=== PATIENT | female | born 1980 | race Caucasian/White ===

== ENCOUNTER 2016-08-13 17:34 | Emergency (ER) | payer MEDICAID, OTHER ==
--- NOTE | 2016-08-13 17:39 | EDPHY ---
H & P Stated Complaint: diagnosed with concussion on , headaches getting worse, vomitted today Time Seen by Provider: 08/13/16 17:38 HPI/ROS: CHIEF COMPLAINT: Headache, vomiting following head injury HISTORY OF PRESENT ILLNESS: The patient presents to the ED complaining of an ongoing headache and vomiting following head injury which occurred 8 days ago. The patient was reportedly struck by her dog in the side of her head. She has had a persistent temporal headache with some post concussive symptoms since that time. The patient denies any unilateral neck pain, numbness, weakness or photophobia. The patient reports a moderate headache which is not improved with Tylenol. The patient reports the headache is primarily in the left temporal area. The patient denies additional traumatic injury. Patient was seen at urgent care approximately 5 days ago and advised to follow up in the ED for progressive symptoms which prompted her visit today. REVIEW OF SYSTEMS: A comprehensive 10 point review of systems is otherwise negative aside from elements mentioned in the history of present illness. Source: Patient - Personal History LMP (Females 10-55): 8-14 Days Ago Current Tetanus/Diphtheria Vaccine: Unsure Current Tetanus Diphtheria and Acellular Pertussis (TDAP): Unsure - Medical/Surgical History Hx Asthma: No Hx Chronic Respiratory Disease: No Hx Diabetes: No Hx Cardiac Disease: No Hx Renal Disease: No Hx Cirrhosis: No Hx Alcoholism: No Hx HIV/AIDS: No Hx Splenectomy or Spleen Trauma: No Other PMH: none reported - Social History Smoking Status: Never smoked - Physical Exam Exam: General Appearance: Alert, no distress Head: Tenderness to palpation along the left temporal bone, no hematoma Eyes: Pupils equal, round, reactive ENT, Mouth: No hemotympanum, no oral trauma Neck: Nontender, trachea midline Respiratory: No chest wall tender, subcutaneous air, lungs clear bilaterally Cardiovascular: Regular rate and rhythm Abdomen: Abdomen is soft and nontender, pelvis stable Skin: No lacerations, No abrasion Back: No midline T/L/S pain Extremities: Nontender, full range of motion Neurological: A&Ox3, normal motor function, normal sensory exam Constitutional: Initial Vital Signs Temperature (C) 37 C 08/13/16 17:36 Heart Rate 85 08/13/16 17:36 Respiratory Rate 18 08/13/16 17:36 Blood Pressure 125/73 H 08/13/16 17:36 O2 Sat (%) 96 04/08/17 17:36 O2 Delivery Mode Room Air Allergies/Adverse Reactions: No Known Allergies Allergy (Unverified 08/13/16 17:35) Home Medications: Medication Instructions Recorded Ondansetron Odt [Zofran Odt] 4 mg PO Q4PRN PRN #20 tab 08/13/16 Medical Decision Making ED Course/Re-evaluation: The patient presents to the ED with severe headache, vomiting and intractable symptoms following a head injury approximately 1 week ago. Given the severity of the patient's symptoms, she was taken for a noncontrast CT scan of her head. CT scan of the brain demonstrates no damage the patient fracture. The patient presents the ED with a post concussive syndrome. She will be discharged home with a prescription for Zofran. She is given customary concussion aftercare instructions. The patient is instructed to follow up with Dr. Irish Hernández our concussion specialist next week. Differential Diagnosis: Differential diagnosis considered includes intracranial hemorrhage, skull fracture, concussion Departure - Departure Disposition: Home, Routine, Self-Care Clinical Impression: Concussion Qualifiers: Encounter type: initial encounter Loss of consciousness presence/duration: without LOC Qualified Code(s): S06.0X0A - Concussion without loss of consciousness, initial encounter Condition: Good Instructions: Concussion (ED) Additional Instructions: 1. Take Ibuprofen or Motrin 600 mg by mouth three times a day. 2. Zofran as needed for nausea 3. Concussion aftercare as directed 4. Follow up with our concussion specialist Dr. Irish Hernández for any unimproved symptoms in the next week. Referrals: Irish Hernández MD [Medical Doctor] - As per Instructions
[2016-08-13] MEDS ORDERED: IBUPROFEN 600 MG TAB PO ONE (17:49)
[2016-08-13] MEDS ORDERED: ONDANSETRON DISINTEGRATING 4 MG TAB PO ONE (17:49)
[2016-08-13 18:29] VITALS: RESP 16
[2016-08-13 18:44] VITALS: BP 118/65; PULSE 76; TEMP 97.7; O2SAT 96
== END 2016-08-13 18:49 | disposition home or self-care (01) ==
DX: S06.0X0A Concussion without loss of consciousness, initial encounter (principal); W54.1XXA Struck by dog, initial encounter